=== PATIENT | male | born 1955 | race Caucasian/White ===

== ENCOUNTER → 2017-04-24 | Outpatient (CLI) | payer MEDICARE ==
--- NOTE | 2017-04-24 13:29 | KCIC ---
Complete abdominal ultrasound History:Hepatitis C. Findings: Aorta: Obscured proximally. Mid to distal aorta are ectatic but without evidence of a focal aneurysm. Inferior vena cava: Patent Pancreas: Talus poorly visualized, but otherwise appears unremarkable. Liver: Upper limits normal in size and 17.6 cm longitudinal. Coarse echogenicity compatible with fatty infiltration. Gallbladder: No evidence of cholelithiasis, gallbladder wall thickening or pericholecystic fluid. Bile ducts: Common bile duct measures 5 mm diameter. No intrahepatic biliary ductal dilatation. Right kidney: 11.4 cm length without hydronephrosis. Left kidney: 11.6 cm longitudinal without hydronephrosis. Spleen: Mildly enlarged, 13.9 cm longitudinal. Small echogenic foci likely represent calcifications. Impression: 1. Liver is upper limits normal in size with evidence of steatosis. 2. Mild splenomegaly. 3. Limited visualization of midline structures due to overlying bowel gas. Electronically signed by: Nicholas Benoit MD (04/24/2017 1:26 PM) [facility]
== END | disposition home or self-care (01) ==
LOC: KCIC US 10:38
PROVIDERS: ATTEND Internal Medicine Gastroenterology
DX: B19.20 Unspecified viral hepatitis C without hepatic coma (principal); R16.1 Splenomegaly, not elsewhere classified
CPT/HCPCS: 76700